=== PATIENT | female | born 1975 | race Caucasian/White ===

== ENCOUNTER 2017-02-22 20:53 | Emergency (ER) | payer OTHER ==
[~2017-02-22] VITALS: Ht 165.1 cm; Wt 127.0 kg
[~2017-02-22 20:53] MED LIST: ADVIL200 M1 PO; ATENOLOL25 MG PO; FLOMAX0.4 MG PO; KETOROLAC TROME10 MG PO; METHIMAZOLE10 MG PO; NORCO 5-325 TA1 EACH PO
== END 2017-02-23 00:20 | disposition home or self-care (01) ==
LOC: ED 20:53
DX: R51 Headache (principal); E05.00 Thyrotoxicosis with diffuse goiter without thyrotoxic crisis or storm; Z79.899 Other long term (current) drug therapy
CPT/HCPCS: 70450; 84703; 96374; 99284; J1885

== ENCOUNTER 2017-04-13 08:45 | Day surgery (SDC) | payer OTHER ==
[~2017-04-13] VITALS: Ht 165.1 cm; Wt 128.8 kg
--- NOTE | 2017-04-13 11:48 | NUR ---
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 12L VIA MASK. PT IN SEMI FOWLERS, O2 SAT 100%. BREATHING IS UNLABORED.
[2017-04-13] MEDS ORDERED: NORCO 5-325 TA1 EACH PO (13:15)
--- NOTE | 2017-04-13 13:57 | NUR ---
1330 HAS BEEN UP TO BR, VOIDS QS. AMB WELL. TAKING PO WELL. WANTS TO GO HOME . AND DAUGHTER IN ROOM.
--- NOTE | 2017-04-13 13:59 | NUR ---
PT DENIED PAIN AND DECLINED PAIN MEDICINE DURING POST OP TIME.
--- NOTE | 2017-04-27 09:34 | OR ---
[facility] [address] [place], [place] [address] Signed DATE OF PROCEDURE: 04/13/17 PREOPERATIVE DIAGNOSIS: Right neck mass. POSTOPERATIVE DIAGNOSIS: Right neck mass. PROCEDURE: Excision of right neck mass. SURGEON: Melchor Roberts M.D. ANESTHESIA: General LMA, Zaki Quintana CRNA. PREOP HISTORY Kelly is a 41-year-old lady with a right neck mass for several years. It has been enlarging recently. Ultrasound has shown a probable lymph node, nearly 3 cm. She is taken to the operating room for the above-mentioned procedure. OPERATIVE PROCEDURE AND FINDINGS After informed consent, the patient was taken the operating room, placed in supine position where general LMA anesthesia was induced. The patient, procedure were verified. Shoulder roll was placed. Head turned to the left. Palpation of the right neck showed a mass in the jugulodigastric area. The right neck was sterilely prepped and draped. Transverse incision was made several fingerbreadths inferior to the mandible. Dissection carried through skin. The skin was injected with 1% Lidocaine before the injection. Incision was carried through skin, subcutaneous tissue, sub platysma. Immediately beneath the platysma, there was about 2 x 2-1/2 cm reddish purplish vascular mass consistent with the lymph node. This was excised with a combination of sharp and blunt dissection. Sent to pathology. Somewhat more superficial and medial was a 1-cm lymph node, which was also excised and sent in the same specimen. No other masses were identified. The wound was copiously lavaged with saline. The wound was then closed with 4- 0 interrupted Vicryl in the platysma and subcu layers and simin in the skin. The skin was cleansed. Neosporin was applied. The patient was then awakened, extubated, transported to recovery room in good condition. No complications. BLOOD LOSS: Minimal. SPECIMEN: To pathology. DRAINS: None. Electronically Signed By: MELCHOR ROBERTS MD 04/27/17 0934 PATIENT NAME: ESTEBANKELLYADRIENNE ORTIZ OPERATIVE REPORT DATE OF : 79 PHYSICIAN: MELCHOR ROBERTS MD REPORT #: [id number] REPORT IS CONFIDENTIAL AND NOT TO BE RELEASED WITHOUT AUTHORIZATION [address] [place], [place] [address] Signed Melchor Roberts MD GC/Celio /[id number] cc: RUPA Busby Electronically Signed By: MELCHOR ROBERTS MD 04/27/17 0934 PATIENT NAME: KELLY ORELLANA OPERATIVE REPORT DATE OF : 79 PHYSICIAN: MELCHOR ROBERTS MD REPORT #: [id number] REPORT IS CONFIDENTIAL AND NOT TO BE RELEASED WITHOUT AUTHORIZATION
== END 2017-04-13 13:40 | disposition home or self-care (01) ==
LOC: DS 08:45 → OPS 08:45
PROVIDERS: Otolaryngology
PROC: 0JB40ZZ Excision of Right Neck Subcutaneous Tissue and Fascia, Open Approach (ICD-10-PCS; principal; 2017-04-13 11:00)
DX: R22.1 Localized swelling, mass and lump, neck (principal); E03.9 Hypothyroidism, unspecified; Z90.49 Acquired absence of other specified parts of digestive tract; Z90.89 Acquired absence of other organs; Z98.890 Other specified postprocedural states
CPT/HCPCS: 00300; 94644; J0330; J1100; J1885; J2250; J2405; J2704; J2765; J3010; J7120

== ENCOUNTER 2017-07-12 21:34 | Emergency (ER) | payer OTHER ==
[~2017-07-12] VITALS: Ht 165.1 cm; Wt 127.0 kg
[2017-07-12] MEDS ORDERED: METHIMAZOLE5 MG PO (21:54)
--- NOTE | 2017-07-14 08:05 | EKG ---
[facility] [address] [facility] [place] [address] Signed Normal sinus rhythm ST \T\ T wave abnormality, consider inferior ischemia Abnormal ECG No previous ECGs available Confirmed by ANDREW DREW MD ([id number]) on 07/14/2017 8:05:09 AM Electronically Signed By: ANDREW DREW MD 07/14/17 0805 PATIENT NAME: JUANCARLOS ORELLANA Electrocardiogram DATE OF : 79 PHYSICIAN: ANDREW DREW MD REPORT #: [id number] REPORT IS CONFIDENTIAL AND NOT TO BE RELEASED WITHOUT AUTHORIZATION
== END 2017-07-13 01:00 | disposition home or self-care (01) ==
LOC: ED 21:34
DX: R07.9 Chest pain, unspecified (principal); I10 Essential (primary) hypertension; Z98.890 Other specified postprocedural states; Z79.899 Other long term (current) drug therapy; Z90.49 Acquired absence of other specified parts of digestive tract
CPT/HCPCS: 36415; 71010; 80053; 84484; 85025; 93005; 93010; 96374; 99284; J1885

== ENCOUNTER 2018-08-05 20:03 | Emergency (ER) | payer OTHER ==
[~2018-08-05] VITALS: Ht 165.1 cm; Wt 127.0 kg
[~2018-08-05 20:03] MED LIST changes: +METHIMAZOLE5 MG PO
--- NOTE | 2018-08-05 22:19 | EKG ---
[facility] [address] [facility] [place], [place] [address] Signed Normal sinus rhythm Normal ECG When compared with ECG of 12-JUL-2017 21:45, No significant change was found Confirmed by TALITA MARTINI DO ([id number]) on 08/05/2018 10:19:18 PM Electronically Signed By: TALITA MARTINI DO 08/05/18 2219 PATIENT NAME: JUANCARLOS ORELLANA Electrocardiogram DATE OF : 79 PHYSICIAN: TALITA MARTINI DO REPORT #: [id number] REPORT IS CONFIDENTIAL AND NOT TO BE RELEASED WITHOUT AUTHORIZATION
[2018-08-05] MEDS ORDERED: PROTONIX40 MG PO (22:42)
[2018-08-05] MEDS ORDERED: ZOFRAN4 MG PO (22:42)
== END 2018-08-05 23:12 | disposition home or self-care (01) ==
LOC: ED 20:03
DX: K29.70 Gastritis, unspecified, without bleeding (principal); F41.9 Anxiety disorder, unspecified; I10 Essential (primary) hypertension; Z79.899 Other long term (current) drug therapy
CPT/HCPCS: 74177; 80053; 81001; 83690; 84703; 85025; 93005; 93010; 99284-25; Q9967

== ENCOUNTER 2020-04-09 16:43 | Emergency (ER) | payer SELFPAY ==
[~2020-04-09] VITALS: Ht 165.1 cm; Wt 133.8 kg
[~2020-04-09 16:43] MED LIST changes: +PROTONIX40 MG PO; +ZOFRAN4 MG PO
== END 2020-04-09 16:55 | disposition home or self-care (01) ==
LOC: ED 16:43
DX: R21 Rash and other nonspecific skin eruption (principal)

== ENCOUNTER 2022-09-11 21:59 | Emergency (ER) | payer OTHER, BC ==
[~2022-09-11] VITALS: Ht 165.1 cm; Wt 139.7 kg
[2022-09-11] MEDS ORDERED: LISINOPRIL10 MG PO (22:13)
[2022-09-11] MEDS ORDERED: FERROUS GLUCON324 M2 PO (22:13)
== END 2022-09-11 22:50 | disposition home or self-care (01) ==
LOC: ED 21:59
DX: S63.501A Unspecified sprain of right wrist, initial encounter (principal); W01.0XXA Fall on same level from slipping, tripping and stumbling without subsequent striking against object, initial encounter; I10 Essential (primary) hypertension; Z79.899 Other long term (current) drug therapy
CPT/HCPCS: 73080; 73110; 99283-25

== ENCOUNTER 2024-09-12 15:06 | Emergency (ER) | payer BC, OTHER ==
[~2024-09-12] VITALS: Ht 165.1 cm; Wt 143.8 kg
[~2024-09-12 15:06] MED LIST changes: +FERROUS GLUCON324 M2 PO; +LISINOPRIL10 MG PO
[2024-09-12 15:28] LABS: BASOPHILS 1.1 % (0-2); EOSINOPHILS 1.2 % (0-6); HEMATOCRIT 34.8 % (35.0-50.0); LYMPHOCYTES 25.1 % (24-44); MCH 22.1 (27-36); MCHC 31.6 g/dl (30-36); MCV 69.8 fl (81-99); MONOCYTES 6.3 % (0-12); NEUTROPHILS 66.3 % (39-80); PLATELET COUNT 379 K/uL (140-440); RBC 4.98 M/ul (4.3-5.7)
[2024-09-12 15:43] LABS: ALBUMIN 3.4 g/dL (3.4-5.0); ALBUMIN/GLOBULIN RATIO 0.71 (1.1-2.4); ALKALINE PHOSPHATASE 86 U/L (46-116); ALT (SGPT) 96 U/L (14-59); ANION GAP 15.5 (7-21); AST (SGOT) 54 U/L (15-37); BILIRUBIN, TOTAL 0.2 ng/dL (0.2-1.0); BUN/CREATININE RATIO 14.75 (6.0-28.6); CALCIUM 8.8 mg/dL (8.5-10.1); CARBON DIOXIDE 24 mmol/L (21-32); CHLORIDE 103 mmol/L (98-107); CREATININE, SERUM 0.61 mg/dL (0.55-1.02); GLOMERULAR FILTRATION RATE,EST 111 mL/min (>60); MAGNESIUM 1.5 mg/dL (1.8-2.4); POTASSIUM 3.5 mmol/L (3.5-5.1); PROTEIN, TOTAL 8.2 g/dL (6.4-8.2); UREA NITROGEN 9 mg/dL (7-18)
[2024-09-12] MEDS ORDERED: MAGNESIUM SULFATE 2 GM/50 ML BAG IV ONE (18:15)
[2024-09-12] MEDS ORDERED: TRANSDERM-SCOP1 EACH TD (19:11)
[2024-09-12] MEDS ORDERED: ANTIVERT25 M1 PO (19:11)
[2024-09-12] MEDS ORDERED: SCOPOLAMINE 1 MG/3 DAYS PATCH 1 EACH TDSY TD ONE (19:15)
[2024-09-12 19:28] VITALS: BP 141/67
--- NOTE | 2024-09-15 17:05 | EKG ---
[facility] [address] [facility] [place] [address] Signed Normal sinus rhythm Normal ECG When compared with ECG of 29-MAR-2019 11:35, No significant change was found Confirmed by Kaylen Yuen DO ([id number]) on 09/15/2024 5:04:52 PM Electronically Signed By: KAYLEN YUEN DO 09/15/24 1705 PATIENT NAME: JUANCARLOS ORELLANA Electrocardiogram DATE OF : 79 PHYSICIAN: KAYLEN YUEN DO REPORT #: [id number] REPORT IS CONFIDENTIAL AND NOT TO BE RELEASED WITHOUT AUTHORIZATION
== END 2024-09-12 19:32 | disposition home or self-care (01) ==
LOC: ED 15:06
PROVIDERS: Emergency Medicine
DX: R42 Dizziness and giddiness (principal); R07.9 Chest pain, unspecified; I10 Essential (primary) hypertension; Z79.899 Other long term (current) drug therapy
CPT/HCPCS: 36415; 80053; 83735; 84484; 84703; 85025; 85060; 93005; 93010; 96365; 99284-25; J3475